=== PATIENT | male | born 1995 | race African-American/Black ===

== ENCOUNTER 2020-08-27 09:29 | Emergency (ER) | payer OTHER, BC, SELFPAY ==
--- NOTE | ~2020-08-27 | CT_ITS ---
EXAMINATION: CT facial bones wo con DATE: 08/27/2020 10:20 INDICATION: Face injury. Left periorbital and cheek soft tissue swelling. TECHNIQUE: Computed tomography (CT) of the facial bones and maxillofacial region was performed withou t intravenous contrast. Automated exposure control and iterative reconstruction technique were employ ed. The dose-length product was 640.50 mGy-cm. COMPARISON: None. FINDINGS: There is a fracture of the left nasal bone. There is a fracture of the anterior left ethmoi d sinuses and left medial orbital rim. There are fractures of the anterior and medial lomas of left m axillary sinus. There is a fracture of the floor left orbit. There is left periorbital soft tissue sw elling of left cheek soft tissue swelling. There is dependent hematoma in left maxillary sinus. There is mild mucosal thickening in the paranasal sinuses. There is a carious lesion of tooth 18. IMPRESSION: 1. Fractures involving the left nasal bone, anterior left ethmoid sinuses, left medial orbital rim, a nterior and medial lomas of left maxillary sinus, and floor of left orbit. 2. Carious lesion of tooth 18. Reviewed, dictated and finalized at location [facility]. IMPRESSION: 1. Fractures involving the left nasal bone, anterior left ethmoid sinuses, left medial orbital rim, anterior and medial lomas of left maxillary sinus, and augusto or of left orbit. 2. Carious lesion of tooth 18.
[2020-08-27 09:43] VITALS: BP 153/92; PULSE 91; RESP 18; TEMP 36.6; O2SAT 98
[2020-08-27] MEDS: HYDROcodone/acetaminophen (*CRX) 5-325 MG TABLET 1 TAB PO (09:53)
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
[2020-08-27 12:15] VITALS: BP 152/92; PULSE 80; RESP 16; O2SAT 97
[2020-08-27 12:41] VITALS: BP 153/88; PULSE 77; RESP 18; O2SAT 98
== END 2020-08-27 12:47 | disposition home or self-care (01) ==
PROVIDERS: Emergency Provider Emergency Medicine
DX: S02.19XA Other fracture of base of skull, initial encounter for closed fracture (principal); S02.32XA Fracture of orbital floor, left side, initial encounter for closed fracture; S02.2XXA Fracture of nasal bones, initial encounter for closed fracture; S02.40DA Maxillary fracture, left side, initial encounter for closed fracture; K02.9 Dental caries, unspecified; Y04.2XXA Assault by strike against or bumped into by another person, initial encounter
CPT/HCPCS: 70486; 99284; A9270

== ENCOUNTER 2020-12-06 12:11 | Emergency (ER) | payer OTHER, SELFPAY ==
[2020-12-06 12:48] VITALS: BP 149/81; PULSE 85; RESP 18; TEMP 37; O2SAT 99
--- NOTE | 2020-12-06 13:28 | ED.URI ---
HPI - URI/Sore Throat General Chief Complaint: Upper Respiratory Infection Stated Complaint: Sore Throat,Bilateral Ear Pain Source: patient Mode of arrival: ambulatory Limitations: no limitations History of Present Illness HPI Narrative: Patient is a 25-year-old male who presents complaining of sore throat, bilateral ear pain, headache, congestion, and generalized body aches/weakness x3 days. He denies known exposure to Covid. Patient is vaccinated for Covid x2. He denies fever but reports that he has felt achy. He reports taking [id number] medications with limited relief. He denies all other complaints at this time. Patient reports he is taking Metformin for weight loss and uses CPAP at night. He denies any other significant medical history at this time. MD elicited complaint: cough and sore throat Related Data Home Medications Medication Instructions Recorded Confirmed metformin 500 mg PO BID 12/06/20 12/06/20 Allergies Allergy/AdvReac Type Severity Reaction Status Date / Time No Known Allergies Allergy Verified 12/06/20 13:26 Review of Systems Review of Systems: CONSTITUTIONAL: Denies fever, chills, or sweats. EYES: Denies visual changes, redness, or discharge. ENT: Reports rhinorrhea, congestion, sore throat, and bilateral otalgia. CARDIOVASCULAR: Denies chest pain, palpitations, or edema. RESPIRATORY: Denies cough or dyspnea. GASTROINTESTINAL: Denies abdominal pain, nausea, vomiting, or diarrhea. GENITOURINARY: Denies dysuria or hematuria. SKIN: Denies rash or itching. MUSCULOSKELETAL: Denies back pain, joint pain, or myalgia. NEUROLOGIC: Denies headache, numbness, dizziness, or weakness. PSYCHIATRIC: Denies anxiety or depression. [facility], [facility] Past Medical History Medical History Healthy adult male Surgical History Surgical History H/O inguinal hernia repair H/O umbilical hernia repair Social History Social History Alcohol intake: current Gender identity (if verbalized by the patient): Male Comments At the time of signature, I have reviewed and agree with nursing past medical, surgical, social, and family history unless otherwise noted. Please see nursing chart for further information. There is no relevant family history pertinent to the presenting complaint. Exam Narrative: GENERAL: Well-appearing, well-nourished, and in no acute distress. HEAD: Normocephalic, atraumatic. EYES: EOMI. No redness or drainage. Conjunctiva are normal. ENT: Mucous membranes pink and moist. Nares clear. No rhinorrhea. TMs cloudy, full and injected bilaterally. Throat with moderate erythema. Uvula midline. NECK: AROM. Supple. No lymphadenopathy. CHEST: No respiratory distress. Clear to auscultation. HEART: Regular rate and rhythm. EXTREMITIES: Normal range of motion. No edema. SKIN: Warm, dry, no rash. NEURO: No focal deficits. Alert and oriented x3. Gait steady. PSYCH: Normal affect. No signs of depression or anxiety. Course Vital Signs Vital signs: Vital Signs Temperature 37.0 C 12/06/20 12:48 Pulse Rate 85 12/06/20 12:48 Respiratory Rate 18 12/06/20 12:48 Blood Pressure 149/81 H 12/06/20 12:48 Pulse Oximetry 99 12/06/20 12:48 Temperature 37.0 C 12/06/20 12:48 Pulse Rate 85 12/06/20 12:48 Respiratory Rate 18 12/06/20 12:48 Blood Pressure 149/81 H 12/06/20 12:48 Pulse Oximetry 99 12/06/20 12:48 Reviewed. Patient has been instructed to follow-up with his PCP regarding his blood pressure. MDM - URI/Sore Throat MDM Narrative Medical decision making narrative: Patient's rapid strep and rapid Covid are negative at this time. Patient is showing signs of bilateral otitis media, antibiotics to be prescribed. Patient also requesting Covid PCR as he is anxious about possible exposure. Patient is aware o
[2020-12-08 19:26] LABS: SARS-CoV-2 RNA PCR Negative
== END 2020-12-06 14:00 | disposition home or self-care (01) ==
PROVIDERS: Emergency Provider Nurse Practitioner; PCP Internal Medicine
DX: J06.9 Acute upper respiratory infection, unspecified (principal); Z20.822 Contact with and (suspected) exposure to COVID-19
CPT/HCPCS: 87081; 87426; 87880; 99213; C9803; G0463; U0003; U0005

== ENCOUNTER 2023-11-30 05:02 | Emergency (ER) | payer BC, SELFPAY ==
--- NOTE | ~2023-11-30 | XR_ITS ---
Right foot Technique: AP and lateral views were obtained. Clinical History: Medial pain Findings: No acute fracture or dislocation is seen. Osseous alignment is anatomic. Type II os navicul ar noted. Joint spaces are preserved without erosive or degenerative change. Soft tissues are unremar kable. Impression: No acute abnormality. Probable type II os navicular. Reviewed, dictated and finalized at [facility]. Impression: No acute abnormality. Probable type II os navicular.
--- NOTE | ~2023-11-30 | XR_ITS ---
Right ankle Technique: AP and lateral views were obtained. Clinical History: Medial malleolus pain Findings: No acute fracture or dislocation is seen. Osseous alignment is anatomic. Ankle mortise and other visualized joint spaces are preserved. Soft tissues are otherwise unremarkable. Impression: Unremarkable right ankle. Reviewed, dictated and finalized at location . Impression: Unremarkable right ankle.
[2023-11-30 05:05] VITALS: BP 164/101; PULSE 82; RESP 16; TEMP 36.7; O2SAT 98
[2023-11-30 05:11] VITALS: BP 127/92; PULSE 84; RESP 18; TEMP 36.7; O2SAT 100
--- NOTE | 2023-11-30 05:20 | ED.LOWEXIN ---
HPI - Extremity Injury (Lower) General Chief Complaint: Extremity Injury, Lower Stated Complaint: ankle pain Time Seen by Provider: 11/30/23 05:09 History of Present Illness HPI Narrative: 28-year-old male presenting to the ED for evaluation of nontraumatic right foot and ankle pain. Patient states that for last 3 days he has been having progressive worsening pain and hobbling onto his left leg because he cannot bear weight onto his right foot. Denies any trauma, rolling the ankle or injuries to his knowledge. He states he has had similar like this happened over the past that went away with rest and ice without any measures. He has had hydrocortisone injections into his feet before for chronic pain. He presents today as he is having pain significant in the medial portion of his right heel and plantar surface of the foot. Difficult to bear weight and sharp and stabbing in sensation. Worsens after prolonged rest and gets better with activity. Related Data Home Medications Medication Instructions Recorded Confirmed metformin 500 mg tablet 500 mg PO BID 12/06/20 12/06/20 Allergies Allergy/AdvReac Type Severity Reaction Status Date / Time No Known Allergies Allergy Verified 11/30/23 05:10 Review of Systems Review of Systems: As reviewed above in HPI [facility] Past Medical History Medical History Healthy adult male Surgical History Surgical History H/O inguinal hernia repair H/O umbilical hernia repair Social History Social History Alcohol intake: current Gender identity (if verbalized by the patient): Male Exam Narrative: GENERAL: [Well-appearing, well-nourished, and in no acute distress.] HEAD: [Normocephalic, atraumatic.] EYES: [PERRLA and EOMI.] ENT: Nares clear, no rhinorrhea or epistaxis. Mucous membranes moist. NECK: Supple. CHEST: [Clear to auscultation. No respiratory distress.] HEART: [Regular rate and rhythm]. No murmur heard. [Normal peripheral pulses.] ABDOMEN: [Soft, nondistended], [nontender], [No rigidity or guarding] EXTREMITIES: Focal tenderness to palpation over the plantar fascial surface more on the medial aspect of his right foot. Appreciable step-offs deformities. Full range of motion with plantar dorsiflexion of the ankle, no midfoot or forefoot tenderness on the dorsal surface. No posterior malleolar ridge tenderness. No signs of trauma but there is some minor swelling on the medial aspect of his right foot near the plantar surface. SKIN: Warm, dry, no rash. NEURO: [No focal deficits]. Alert and oriented [x3.] PSYCH: [Normal mood and affect.] Course Vital Signs Vital signs: Vital Signs Temperature 36.7 C 11/30/23 05:05 Pulse Rate 82 11/30/23 05:05 Respiratory Rate 16 11/30/23 05:05 Blood Pressure 164/101 H 11/30/23 05:05 Pulse Oximetry 98 11/30/23 05:05 Oxygen Delivery Room Air 11/30/23 05:05 Temperature 36.7 C 11/30/23 05:11 Pulse Rate 84 11/30/23 05:11 Respiratory Rate 18 11/30/23 05:11 Blood Pressure 127/92 H 11/30/23 05:11 Pulse Oximetry 100 11/30/23 05:11 Oxygen Delivery Room Air 11/30/23 05:05 MDM - Extremity Injury (Lower) MDM Narrative Medical decision making narrative: 28-year-old male presenting for nontraumatic right foot pain. He states he has had chronic pain in his bilateral feet for some time and previous hydrocortisone injections in them. He describes pain as worse with initiating movements after prolonged rest and gets better with rest ice. He has focal tenderness over the plantar fascial surface of the right foot near the heel and medial insertion of the muscles that control eversion of the ankle. No obvious step-offs deformities. He has warm well perfused extremities and symmetric pulses. Neurovascularly he is i
[2023-11-30] MEDS: dexAMETHasone SOD PHOS INJ 10 MG/ML 1 ML VIAL IM (05:30)
[2023-11-30] MEDS: KETOROLAC 30 MG/ML VIAL (*BKC) IM (05:30)
== END 2023-11-30 06:25 | disposition home or self-care (01) ==
PROVIDERS: Emergency Provider Student in an Organized Health Care Education/Training Program; PCP Internal Medicine
DX: M72.2 Plantar fascial fibromatosis (principal)
CPT/HCPCS: 73600; 73620; 96372; 99284; J1100; J1885